=== PATIENT | male | born 1955 | race Caucasian/White ===

== ENCOUNTER 2016-06-04 03:39 | Emergency (ER) | payer OTHER ==
[~2016-06-04 03:39] MED LIST: AMITRIPTYLINE100 MG PO; ASPIRIN81 M1 PO; IBUPROFEN800 MG PO; LITHIUM; NORCO 5/325 TAB1 TAB PO; PROZAC PO; PROZAC40 MG DOB; SEROQUEL; [UNRECOGNIZED DRUG - OTHER]
[2016-06-04] MEDS ORDERED: OXYCODONE HCL5 MG PO (06:37)
[2016-06-04] MEDS ORDERED: MEDROL DOSEPAK4 MG DOB (06:38)
[2016-06-04] MEDS ORDERED: FLEXERIL PO (06:39)
== END 2016-06-04 07:00 | disposition home or self-care (01) ==
LOC: SED 03:39
DX: M54.42 Lumbago with sciatica, left side (principal); B19.20 Unspecified viral hepatitis C without hepatic coma; K74.60 Unspecified cirrhosis of liver; F17.200 Nicotine dependence, unspecified, uncomplicated; Z88.5 Allergy status to narcotic agent; Z79.899 Other long term (current) drug therapy
CPT/HCPCS: 96372; 99283; J1030; J1885; J3360